=== PATIENT | male | born 1965 | race Two or more races ===

== ENCOUNTER 2024-12-30 18:18 | Emergency (ER) | payer OTHER ==
[~2024-12-30] VITALS: Ht 172.7 cm; Wt 86.3 kg
--- NOTE | 2024-12-30 18:50 | ED.PDOC ---
History of Present Illness HPI Comments 59 year old male with PMHx HTN presents to the ED via EMS with a chief complaint of ETOH intoxication onset today. Per EMS, 911 was called by son, patient had a whole bottle of tequila, fell backwards, hit the back of his head, currently has a 2-3 in laceration, bleeding controlled. EMS states son witnessed fall, no LOC. In route to ED, patient was experiencing nausea/vomiting. Patient is a poor historian. No other symptoms or modifying factors present at this time. Chief Complaint: ETOH Time Seen by MD: 18:45 Reviewed Notes: Medications, Allergies Allergies: Coded Allergies: No Known Drug Allergy (Verified Allergy, Unknown, 12/30/24) Information Source: Emergency Med Personnel Mode of Arrival: EMS Severity: Moderate Timing: Hours Duration: Since onset Prehospital treatment: None Past Medical History PAST MEDICAL HISTORY: HTN Surgical History: Denies all surgeries Social History Smoker: Non-Smoker Alcohol: Heavy Drugs: Denies Drug Use Lives In: Home Unable to Obtain due to: Other (ETOH intoxication) Physical Exam General Appearance: Normal HEENT: Normal ENT Inspection, Pharynx Normal, TMs Normal Neck: Full Range of Motion, Non-Tender, Normal, Normal Inspection Respiratory: Chest Non-Tender, Lungs Clear, No Accessory Muscle Use, No Respiratory Distress, Normal Breath Sounds Cardiovascular: No Edema, No JVD, No Murmur, No Gallop, Normal Peripheral Pulses, Regular Rate/Rhythm Breast Exam: Deferred Gastrointestinal: No Organomegaly, Non Tender, No Pulsatile Mass, Normal Bowel Sounds, Soft Genitalia: Deferred Pelvic: Deferred Rectal: Deferred Extremities: No calf tenderness, Normal capillary refill, Normal inspection, Normal range of motion, Non-tender, No pedal edema Musculoskeletal : Apperance: Normal Neurologic: Alert, nuclear equipment operator II-XII nml as Tested, No Motor Deficits, Normal Affect, Normal Mood, No Sensory Deficits Cerebellar Function: Normal Reflexes: Normal Skin: Dry, Normal Color, Warm Lymphatic: No Adenopathy Was a procedure done? Was a procedure done?: Yes Sedation Sedation?: No Informed consent obtained: Yes Laceration Repair : Location posterior head Length 3x3.5 cm Anesthetic: Lidocaine, With epi Laceration Repair Prep: Saline, Betadine, Shur-Clens, by Irrigation, Manual Scrub Laceration Repair Wound Comple: epidermis/dermis repair Laceration Repair: [place] (7) Informed consent obtained: Yes Risks, benefits, and alternati: Yes Differential Dx Considerations may include: DDX: alcohol overdose, drug toxicity, bony fracture, intracranial hemorrhage, neurovascular injury and others X-Ray, Labs, Meds, VS Vital Signs Date Time Temp Pulse Resp B/P (MAP) Pulse Ox O2 Delivery O2 Flow Rate FiO2 12/31/24 00:40 98.4 69 12 111/65 (80) 98 98.4 12/30/24 19:30 Room Air* 0 21 12/30/24 19:30 60 19 108/67 (81) 97 12/30/24 18:40 98.9 68 14 128/81 100 98.9 Lab Test 12/30/24 20:45 12/30/24 19:00 12/30/24 18:58 Range/Units Urine Color Light-yellow Yellow Urine Clarity Clear Clear Urine pH 5.5 5.0-9.0 Urine Specific [place] 1.009 1.001-1.035 Urine Protein Negative Negative Urine Ketones Negative Negative Urine Blood Negative Negative /uL Urine Nitrite Negative Negative Urine Bilirubin Negative Negative Urine Urobilinogen Normal Negative mg/dL Urine Leukocyte Esterase Negative Negative /uL Urine RBC <1 0 - 3 /hpf Urine Microscopic WBC < 1 0-3 /HPF Urine Squamous Epithelial Cells None seen <5 /hpf Urine Bacteria None seen None Seen /hpf Urine Glucose Normal Normal mg/dL POC Glucose 139 H 70-106 mg/dl White Blood Count 6.3 4.4-10.8 10^3/uL Red Blood Count 5.00 4.5-5.90 10^6/uL Hemoglobin 14.8 13.5-17.5 g/dL Hematocrit 42.3 41.0-53.0 % Mean Corpuscular Volume 84.6 80.0-100.0 fL Mean Corpuscular Hemoglobin 29.7 28.0-32.0 pg Mean Corpuscular Hemoglobin Concent 35.1 32.0-36.0 g/dL Red Cell Distribution Width 12.7 11.8-14.3 % Platelet Count 201 140-450 10^3/uL Mean Platelet Volume 8.3 6.9-10.8 fL Neutrophils (%) (Auto) 61.5 37.0-80.0 % Lymphocytes (%) (Auto) 32.0 10.0-50.0 % Monocytes (%) (Auto) 4.6 0.0-12.0 % Eosinophils (%) (Auto) 1.2 0.0-7.0 % Basophils (%) (Auto) 0.7 0.0-2.0 % Neutrophils # (Auto) 3.9 1.6-8.6 10 ^3/uL Lymphocytes # (Auto) 2.0 0.4-5.4 10 ^3/uL Monocytes # (Auto) 0.3 0-1.3 10 ^3/uL Eosinophils # (Auto) 0.1 0-0.8 10 ^3/uL Basophils # (Auto) 0 0-0.2 10 ^3/uL Nucleated Red Blood Cells 0.1 % Sodium Level 141 136-145 mmol/L Potassium Level 3.5 3.5-5.1 mmol/L Chloride Level 104 98-107 mmol/L Carbon Dioxide Level 24 20-31 mmol/L Anion Gap 13 5-15 Blood Urea Nitrogen 12 9-23 mg/dL Creatinine 0.86 0.700-1.30 mg/dL Glomerular Filtration Rate Calc 101 >90 mL/min BUN/Creatinine Ratio 14.0 10.0-20.0 Serum Glucose 137 H 74-106 mg/dL Calcium Level 8.6 L 8.7-10.4 mg/dL Total Bilirubin 1.0 0.2-1.0 mg/dL Aspartate Amino Transferase (AST) 42 H 13-40 U/L Alanine Aminotransferase (ALT) 51 H 7-40 U/L Alkaline Phosphatase 73 46-116 U/L Total Protein 7.5 5.7-8.2 g/dL Albumin 4.4 3.2-4.8 g/dL Salicylates Level < 3.0 -30 mg/dL Acetaminophen Level < 2.0 L 10.0-20.0 UG/ML Plasma/Serum Blood Alcohol 243.8 H <10 mg/dL [address] [address] Ph: [phone] DIAGNOSTIC IMAGING Diagnostic Imaging Report : [id number] Signed PATIENT: IRVIN MILLER ACCT: [id number] UNIT: [id number] : 1965 LOC: ER ROOM / BED: / AGE / SEX: 59 / M ADM STATUS: REG ER SERVICE [id number] ORDERING PHYSICIAN: THEA MENENDEZ MD PROCEDURE(s): HWOCT - HEAD WITHOUT CONTRAST REASON: fall injury Etoh ORDER NUMBER(s): [id number], ACCESSION NUMBER(s): [id number] CLINICAL HISTORY: fall injury Etoh TECHNIQUE: Helical scanning was performed of the head from the skull base to the vertex. Multiplanar reconstructions were performed. This exam was performed according to our departmental dose optimization program. Up-to-date CT equipment and radiation dose reduction techniques are utilized as appropriate. CTDI 18 DLP 1460 COMPARISON: None FINDINGS: There is no evidence for acute intracranial hemorrhage, acute ischemic changes, mass, mass effect, or extra-axial fluid collection. There is no hydrocephalus or midline shift. There is no effacement of the cerebral sulci and basal subarachnoid cisterns. The munoz-white matter differentiation is well maintained. The imaged paranasal sinuses are clear. IMPRESSION: NO ACUTE INTRACRANIAL ABNORMALITY SEEN. ATED BY: JUDSON ROBERTS MD DICTATED DATE/TIME: 12/30/242017 SIGNED BY: JUDSON ROBERTS MD SIGNED DATE/TIME: 12/30/242017 CC: [place] [id number] Ph: [phone] DIAGNOSTIC IMAGING Diagnostic Imaging Report : [id number] Signed PATIENT: IRVIN MILLER ACCT: [id number] UNIT: [id number] : 1965 LOC: ER ROOM / BED: / AGE / SEX: 59 / M ADM STATUS: REG ER SERVICE 1846 ORDERING PHYSICIAN: THEA MENENDEZ MD PROCEDURE(s): CS2 - CERVICAL WITHOUT CONTRAST REASON: fall injury Etoh ORDER NUMBER(s): [id number], ACCESSION NUMBER(s): [id number] CLINICAL HISTORY: fall injury Etoh TECHNIQUE: CT exam of the cervical spine was performed without intravenous contrast. This exam was performed according to our departmental dose optimization program. Up-to-date CT equipment and radiation dose reduction techniques are utilized as appropriate. CTDI 18 DLP 1460 COMPARISON: CT HEAD WITHOUT CONTRAST on DOS: 12/30/24 FINDINGS: The alignment of the cervical spine is normal. The vertebral body heights are maintained. There is minimal scattered intervertebral disc space loss. The prevertebral space is within normal limits. No acute fracture or dislocation is seen. There is no high-grade central canal or neural foraminal narrowing by CT. IMPRESSION: No CT evidence for acute cervical spine fracture. ATED BY: JUDSON ROBERTS MD DICTATED DATE/TIME: 12/30/242022 SIGNED BY: JUDSON ROBERTS MD SIGNED DATE/TIME: 12/30/242022 CC: Time of 1ST Reevaluation: 19:15 Reevaluation 1ST: Unchanged Patient Education/Counseling: Prognosis, Other Family Education/Counseling: No Family Present SEPSIS Sepsis Screen Physician Orders Head Without Contrast (12/30/24 18:46) Staple Gun (12/30/24 ) Cervical Without Contrast (12/30/24 18:46) Vital Signs Date Time Temp Pulse Resp B/P (MAP) Pulse Ox O2 Delivery O2 Flow Rate FiO2 12/31/24 00:40 98.4 69 12 111/65 (80) 98 98.4 12/30/24 19:30 Room Air* 0 21 12/30/24 19:30 60 19 108/67 (81) 97 12/30/24 18:40 98.9 68 14 128/81 100 98.9 Laboratory Tests Test 12/30/24 18:58 White Blood Count 6.3 10^3/uL (4.4-10.8) Departure 1 Departure Time of Disposition: 21:15 Impression: Primary Impression: Alcohol intoxication Additional Impressions: Head injury Scalp laceration Disposition: 01 HOME / SELF CARE / HOMELESS Condition: Stable Discharged With: Self Critical Care Note Critical Care Time?: No Stability Stability form required: No Heart Score Heart Score: Heart Score Response (Comments) Value History N/A 0 EKG N/A 0 Age N/A 0 Risk Factors N/A 0 Troponin N/A 0 Total 0 I personally scribed for THEA MENENDEZ MD ([email or web address]) on 12/30/24 at 18:50. Electronically submitted by Ariane Briseno ([email or web address]). I personally scribed for THEA MENENDEZ MD ([email or web address]) on 12/30/24 at 20:35. Electronically submitted by Ariane Briseno ([email or web address]). I personally scribed for THEA MENENDEZ MD ([email or web address]) on 12/31/24 at 00:37. Electronically submitted by Ariane Briseno ([email or web address]). THEA MENENDEZ MD Dec 30, 2024 18:50
[2024-12-30] MEDS: LIDOCAINE W/ EPINEPHRINE 1% 20ML VIAL ID ONE (19:00)
[2024-12-30 19:06] LABS: Hematocrit 42.3 % (41.0-53.0); Hemoglobin 14.8 g/dL (13.5-17.5); Mean Corpuscular Hemoglobin 29.7 pg (28.0-32.0); Mean Corpuscular Volume 84.6 fL (80.0-100.0); Nucleated Red Blood Cells % 0.1 %
[2024-12-30] MEDS: diphenhydrAMINE HCL 50 MG/1 ML VL IM ONE (19:15)
[2024-12-30] MEDS: HALOPERIDOL LACTATE 5 MG/ML INJ VIAL IM ONE (19:15)
[2024-12-30 19:28] LABS: Albumin 4.4 g/dL (3.2-4.8); Anion Gap 13 (5-15); BUN/Creatinine Ratio 14.0 (10.0-20.0); Blood Urea Nitrogen 12 mg/dL (9-23); Carbon Dioxide 24 mmol/L (20-31); Chloride 104 mmol/L (98-107); Sodium 141 mmol/L (136-145); Total Protein 7.5 g/dL (5.7-8.2)
[2024-12-30 19:29] LABS: Bilirubin, Total 1.0 mg/dL (0.2-1.0)
[2024-12-30 19:38] LABS: Alanine Aminotransferase 51 U/L (7-40); Calcium 8.6 mg/dL (8.7-10.4); Glucose 137 mg/dL (74-106); Potassium 3.5 mmol/L (3.5-5.1)
[2024-12-30 19:41] LABS: Acetaminophen < 2.0 UG/ML (10.0-20.0); Salicylate < 3.0 mg/dL (-30)
[2024-12-30 20:01] LABS: Alkaline Phosphatase 73 U/L (46-116)
--- NOTE | 2024-12-30 20:21 | DVH ---
CLINICAL HISTORY: fall injury Etoh TECHNIQUE: Helical scanning was performed of the head from the skull base to the vertex. Multiplanar reconstructions were performed. This exam was performed according to our departmental dose optimization program. Up-to-date CT equipment and radiation dose reduction techniques are utilized as appropriate. CTDI 18 DLP 1460 COMPARISON: None FINDINGS: There is no evidence for acute intracranial hemorrhage, acute ischemic changes, mass, mass effect, or extra-axial fluid collection. There is no hydrocephalus or midline shift. There is no effacement of the cerebral sulci and basal subarachnoid cisterns. The munoz-white matter differentiation is well maintained. The imaged paranasal sinuses are clear. IMPRESSION: NO ACUTE INTRACRANIAL ABNORMALITY SEEN.
--- NOTE | 2024-12-30 20:26 | DVH ---
CLINICAL HISTORY: fall injury Etoh TECHNIQUE: CT exam of the cervical spine was performed without intravenous contrast. This exam was performed according to our departmental dose optimization program. Up-to-date CT equipment and radiation dose reduction techniques are utilized as appropriate. CTDI 18 DLP 1460 COMPARISON: CT HEAD WITHOUT CONTRAST on DOS: 12/30/24 FINDINGS: The alignment of the cervical spine is normal. The vertebral body heights are maintained. There is minimal scattered intervertebral disc space loss. The prevertebral space is within normal limits. No acute fracture or dislocation is seen. There is no high-grade central canal or neural foraminal narrowing by CT. IMPRESSION: No CT evidence for acute cervical spine fracture.
[2024-12-30 21:04] LABS: Urine Protein, UAD Negative (Negative)
[2024-12-31 00:40] VITALS: BP 111/65; PULSE 69; RESP 12; TEMP 98.4; O2SAT 98
== END 2024-12-31 00:50 | disposition home or self-care (01) ==
LOC: ER 18:18 → EDBD 18:18 → ER 12-31 00:50
DX: S01.01XA Laceration without foreign body of scalp, initial encounter (principal); F10.129 Alcohol abuse with intoxication, unspecified; I10 Essential (primary) hypertension; Y90.9 Presence of alcohol in blood, level not specified; R42 Dizziness and giddiness; W19.XXXA Unspecified fall, initial encounter; Y93.89 Activity, other specified; Y92.89 Other specified places as the place of occurrence of the external cause; Y99.8 Other external cause status
CPT/HCPCS: 12002; 36415; 70450; 72125; 80053; 80320; 80329; 81001; 82947; 85025; 99284; A4649; 82962